=== PATIENT | female | born 1970 | race Two or more races ===

== ENCOUNTER 2017-10-13 10:03 | Emergency (ER) | payer OTHER ==
[~2017-10-13] VITALS: Ht 149.9 cm; Wt 52.2 kg
== END 2017-10-13 14:46 | disposition home or self-care (01) ==
LOC: ER 10:03
DX: S80.872A Other superficial bite, left lower leg, initial encounter (principal); W54.0XXA Bitten by dog, initial encounter; Y93.89 Activity, other specified; Y92.89 Other specified places as the place of occurrence of the external cause; Y99.8 Other external cause status

== ENCOUNTER 2020-01-29 08:30 | Outpatient (CLI) | payer OTHER | END 2020-01-29 08:32 | disposition home or self-care (01) | LOC: PPH VACUNA 08:30 | DX: Z23 Encounter for immunization (principal) ==

== ENCOUNTER 2021-01-12 08:00 | Outpatient (CLI) | payer OTHER | END 2021-01-12 08:30 | disposition home or self-care (01) | LOC: PPH VACUNA 08:00 | PROVIDERS: ATTEND Emergency Medicine Pediatric Emergency Medicine | DX: Z23 Encounter for immunization (principal) ==

== ENCOUNTER → 2021-10-14 | Outpatient (CLI) | payer OTHER | END | disposition home or self-care (01) | LOC: MAMO-SONO 11:23 | DX: Z12.31 Encounter for screening mammogram for malignant neoplasm of breast (principal); Z12.39 Encounter for other screening for malignant neoplasm of breast; R93.49 Abnormal radiologic findings on diagnostic imaging of other urinary organs ==

== ENCOUNTER 2022-01-11 13:04 | Outpatient (CLI) | payer OTHER | END 2022-01-11 13:14 | disposition home or self-care (01) | LOC: PPH VACUNA 13:04 | PROVIDERS: ATTEND Emergency Medicine Pediatric Emergency Medicine | DX: Z23 Encounter for immunization (principal) ==

== ENCOUNTER 2022-08-23 14:42 | Outpatient (CLI) | payer OTHER | END 2022-08-23 14:57 | disposition home or self-care (01) | LOC: MAMO-SONO 14:42 | PROVIDERS: ATTEND Obstetrics & Gynecology | DX: N60.11 Diffuse cystic mastopathy of right breast (principal); N60.12 Diffuse cystic mastopathy of left breast ==